=== PATIENT | female | born 2000 | race African-American/Black ===

== ENCOUNTER 2019-03-09 03:40 | Emergency (ER) | payer OTHER, MEDICAID, SELFPAY ==
[2019-03-09 03:52] VITALS: BP 137/90; PULSE 96; RESP 20; TEMP 37.5; O2SAT 100; BMI 25.7
[2019-03-09] MEDS: KETOROLAC 60 MG/2 ML VIAL IM (04:26)
--- NOTE | 2019-03-09 04:27 | ED_ITS ---
HPI - URI/Sore Throat General Chief Complaint: Upper Respiratory Symptoms Stated Complaint: Sore throat Time Seen by Provider: 03/09/19 04:12 Source: patient Mode of arrival: ambulatory Limitations: no limitations History of Present Illness HPI Narrative: The patient checks in with complaints of fever and severe sore throat. She has not used ibuprofen or Tylenol. She is having difficulty swallowing. She has slight hoarseness. She has 2 young children at home, needed they nor have been ill. She does not work. She is a smoker, she has no allergies or asthma. She has no significant cough. She has no GI symptoms. She is not . Related Data Previous Rx's Medication Instructions Recorded amoxicillin 500 mg PO TID 10 Days #30 cap 03/09/19 Review of Systems Review of Systems ROS Unobtainable: All systems reviewed & are unremarkable except as noted in HPI and below Constitutional Denies chills, Reports fever(s), Reports lethargy and Denies weakness Eyes Denies eye discharge ENT Ears, Nose, Mouth, and Throat: Reports change in voice, Reports neck pain and Reports sore throat Cardiovascular Denies chest pain, Denies irregular heart rhythm, Denies lightheadedness, Denies palpitations, Denies dyspnea, Denies dyspnea on exertion and Denies orthopnea Respiratory Denies cough, Denies dyspnea, Denies dyspnea on exertion and Denies wheezing Gastrointestinal Gastrointestinal: Denies abdominal pain, Denies change in bowel habits, Denies diarrhea, Denies nausea and Denies vomiting Musculoskeletal Reports neck pain Neurologic Denies weakness Endocrine Denies palpitations Allergic/Immunologic Denies wheezing [facility] Medical History (Updated 03/09/19 @ 04:30 by Yeyo Tapia MD) No active medical problems (Acute) Surgical History (Updated 03/09/19 @ 04:24 by Yeyo Tapia MD) No pertinent past surgical history (Acute) Social History Smoking Status: Current every day smoker Social History Smoking Status: Current every day smoker Exam Initial Vital Signs Initial Vital Signs: Vital Signs Temperature 99.5 F 03/09/19 03:52 Pulse Rate 96 H 03/09/19 03:52 Respiratory Rate 20 03/09/19 03:52 Blood Pressure 137/90 03/09/19 03:52 Pulse Oximetry 100 03/09/19 03:52 Const General: cooperative, well developed and No acute distress Nutritional Appearance: well nourished Orientation: alert, awake and oriented x3 HENMT Head: normocephalic and atraumatic Ears: external ears normal and TM's normal bilaterally Nose: external nose normal and No nasal discharge Face and sinus: sinuses nontender, face symmetric, no sinus tenderness and No dry mucous membranes Mouth: oral mucosae normal and moist mucous membranes Teeth and gingiva: dentition normal Throat: posterior oropharynx abnormal (Bilateral tonsillar erythema with exudate.) Eyes Conjunctivae: conjunctivae normal Neck Neck: lymphadenopathy and other (No meningeal signs) Resp Effort & Inspection: normal respiratory effort, able to speak in complete sentences, no respiratory distress and no use of accessory muscles Auscultation: clear to auscultation bilaterally, no rales, no rhonchi and no wheezes Cardio Rate: regular rate Rhythm: regular rhythm Heart Sounds: no click, no gallops, no murmurs and no rubs Pulses: normal peripheral pulses Skin General: no rashes or lesions noted, No jaundice and No petechiae Neuro General: alert, oriented x3, gait normal and no focal motor deficits Speech: speech normal Course Course Narrative: The patient has confirmed strep throat. I have started on amoxicillin. She has not been taking analgesics for the throat pain. She is miserable, Toradol IM was given. She is instructed to use ibuprofen 3 tablets every 6 hours. Vital Signs - 8 hr 03/09/19 03:52 Temperature 99.5 F Pulse Rate 96 H Respiratory Rate 20 Blood Pressure 137/90 Pulse Oximetry 100 MDM - URI/Sore Throat Lab Data Point of Care Testing Rapid Strep A Positive Discharge Plan Departure Patient Disposition: Home Clinical Impression: Strep throat Instructions: DI for Strep Throat Activity Restrictions/Additional Instructions: Amoxicillin 3 times daily as prescribed. Ibuprofen take 3 tablets every 6 hours as needed for pain or fever. Be sure you are drinking plenty of fluids and staying well hydrated as we discussed. Return the ER if necessary. Prescriptions: New amoxicillin 500 mg capsule 500 mg PO TID 10 Days Qty: 30 RF: 0
[2019-03-09] MEDS: AMOXICILLIN 250 MG PREPACK 1 BOTTLE MISC (04:28)
== END 2019-03-09 04:42 | disposition home or self-care (01) ==
PROVIDERS: Emergency Provider Emergency Medicine
DX: J02.0 Streptococcal pharyngitis (principal)
CPT/HCPCS: 87880; 96372; 99282; 99283; J1885

== ENCOUNTER 2019-08-09 21:48 | Emergency (ER) | payer OTHER, MEDICAID, SELFPAY ==
[2019-08-09 21:55] VITALS: BP 142/93; PULSE 102; RESP 14; TEMP 36.9; O2SAT 99; BMI 25.7
--- NOTE | 2019-08-09 22:48 | ED.SKABFB ---
HPI - Skin/Abscess/Foreign Bdy General Chief complaint: Skin/Abscess/Foreign Body Stated complaint: RASH ALL OVER Time Seen by Provider: 08/09/19 22:48 Source: patient Mode of arrival: Ambulatory Limitations: no limitations History of Present Illness HPI narrative: Patient is a 19-year-old female who presents with rash on the back of her neck and under her armpits. She says it started this morning. She took a shower and Benadryl this evening and seems to have disappeared while in the emergency department. She at no time had any difficulty breathing she overall feels like the itching is gone and that the rash has completely resolved. complaint: rash Location: generalized Related Data Allergies Allergy/AdvReac Type Severity Reaction Status Date / Time No Known Drug Allergies Allergy Verified 08/09/19 22:02 Review of Systems Review of Systems Narrative: GENERAL: Denies chills,fever HEENT: Denies throat pain RESPIRATORY: Denies dyspnea, cough, wheezing CARDIOVASCULAR: Denies chest pain, palpitations GASTROINTESTINAL: Denies nausea, vomiting MUSCULOSKELETAL: Denies extremity pain, injury SKIN: See HPI NEUROLOGIC: Denies weakness, dizziness, headache, numbness 8 point review of systems is negative except for those stated above and HPI Patient History Medical History No active medical problems (Acute) Surgical History No pertinent past surgical history (Acute) Social History Smoking Status: Current every day smoker Social History Smoking Status: Current every day smoker tobacco type: cigarettes alcohol intake frequency: a few times a month Substance Use Type: marijuana Exam Initial Vital Signs Initial Vital Signs: Vital Signs Temperature 98.4 F 08/09/19 21:55 Pulse Rate 102 H 08/09/19 21:55 Respiratory Rate 14 08/09/19 21:55 Blood Pressure 142/93 H 08/09/19 21:55 Pulse Oximetry 99 08/09/19 21:55 GENERAL: Well-appearing, well-nourished and in no acute distress. CARDIOVASCULAR: peripheral pulses in tact, cap refill <2 sec RESPIRATORY: No respiratory distress, speaks in full sentences without difficulty EXTREMITIES: Normal range of motion, no clubbing or edema. Neurovascularly intact NEUROLOGICAL: Cranial nerves II through XII grossly intact. Normal gait and speech. SKIN: No identifiable hives or rash noted on neck trunk or extremities Course Vital Signs Vital signs: Vital Signs - 8 hr 08/09/19 21:55 08/09/19 22:57 Temperature 98.4 F 98.9 F Pulse Rate 102 H 99 H Respiratory Rate 14 20 Blood Pressure 142/93 H Blood Pressure [Left Arm] 130/80 Pulse Oximetry 99 98 MDM - Skin/Abscess/Foreign Bdy MDM Narrative Medical decision making narrative: Patient now has no identifiable rash. She overall is feeling better. At this time no indication for any further treatment. Discharge Plan Departure Patient Disposition: Home Clinical Impression: Allergic reaction Qualifiers: Encounter type: initial encounter Qualified Code(s): T78.40XA - Allergy, unspecified, initial encounter Discharge Date/Time: 08/09/19 23:09 Instructions: DI for Hives Activity Restrictions/Additional Instructions: *You have been diagnosed with rash *What to do: Possible allergic reaction. Of *Continue to take medications as directed Benadryl 25 mg every 6 hours only if needed for itching. This can and does cause drowsiness *Follow up with your primary care provider in 2-3 days *Return to ER if you should have increased or worsening rash, difficulty breathing or any new, worsening or concerning symptoms
[2019-08-09 22:57] VITALS: BP 130/80; PULSE 99; RESP 20; TEMP 37.2; O2SAT 98
== END 2019-08-09 23:09 | disposition home or self-care (01) ==
PROVIDERS: Emergency Provider Emergency Medicine
DX: T78.40XA Allergy, unspecified, initial encounter (principal); R21 Rash and other nonspecific skin eruption
CPT/HCPCS: 99282

== ENCOUNTER 2022-08-27 08:47 | Emergency (ER) | payer OTHER, MEDICAID, SELFPAY ==
[2022-08-27 09:28] VITALS: BP 134/85; PULSE 98; RESP 15; TEMP 37.2; O2SAT 96; BMI 34.3
[2022-08-27 10:46] LABS: COVID19 -Nasal RAPID Negative (Negative)
--- NOTE | 2022-08-27 11:16 | ED.URI ---
HPI - URI/Sore Throat General Chief Complaint: Upper Respiratory Symptoms Stated Complaint: sore throat,cough Time Seen by Provider: 08/27/22 09:51 Source: patient Mode of arrival: Ambulatory Limitations: no limitations History of Present Illness HPI Narrative: The patient has been ill for 5 days. She complains of headache, sore throat, pain with swallowing, occasional cough. She is uncertain of fever. She is no nasal congestion. She is no history of asthma or allergies. She is no chest pain, no difficulty breathing. She is no GI symptoms. She is no rashes. She is a cigarette smoker. Related Data Previous Rx's Medication Instructions Recorded amoxicillin 500 mg tablet 500 mg PO TID 10 days #30 tabs 08/27/22 Allergies Allergy/AdvReac Type Severity Reaction Status Date / Time No Known Drug Allergies Allergy Verified 08/27/22 09:32 Review of Systems Review of Systems ROS Unobtainable: All systems reviewed & are unremarkable except as noted in HPI and below Patient History Medical History (Updated 08/27/22 @ 11:22 by Yeyo Tapia MD) No active medical problems No active medical problems Surgical History No pertinent past surgical history Social History Smoking Status: Current every day smoker Smoking Status: Current every day smoker tobacco type: cigarettes alcohol intake frequency: a few times a month Substance Use Type: marijuana Exam Initial Vital Signs Initial Vital Signs: Vital Signs Temperature 99.0 F 08/27/22 09:28 Pulse Rate 98 H 08/27/22 09:28 Respiratory Rate 15 08/27/22 09:28 Blood Pressure 134/85 08/27/22 09:28 Pulse Oximetry 96 08/27/22 09:28 Oxygen Delivery Method 08/27/22 09:28 Const General: cooperative, ill appearing and other (Nontoxic.) Nutritional Appearance: average body habitus [facility] Head: normal to inspection, normocephalic and atraumatic Ears: TM's normal bilaterally Nose: external nose normal and nares normal Face and sinus: sinuses nontender Mouth: other (Oropharyngeal erythema, slight exudate. No tonsillar hypertrophy.) Eyes General: Yes appearance normal, both eyes and all related structures Neck Neck: normal visual inspection, full ROM and lymphadenopathy Resp Effort & Inspection: normal respiratory effort Auscultation: clear to auscultation bilaterally Cardio Rate: regular rate Rhythm: regular rhythm Heart Sounds: S1 normal, S2 normal and no murmurs Back/Spine/Pelvis Back: normal to inspection Skin General: no rashes or lesions noted Neuro General: patient alert, patient awake, patient oriented x3 and no focal motor deficits Course Orders Ordered: ED Orders 08/27/22 09:27 COVID19 -Nasal RAPID/Pre-Proc Stat Vital Signs Vital signs: Vital Signs - 8 hr 08/27/22 09:28 Temperature 99.0 F Pulse Rate 98 H Respiratory Rate 15 Blood Pressure 134/85 Pulse Oximetry 96 Oxygen Delivery Method Room Air MDM - URI/Sore Throat Lab Data Labs: Lab Results 08/27/22 Range/Units 09:27 SARS-CoV-2 (PCR) Negative (Negative) Point of Care Testing Rapid Strep A Positive Discharge Plan Departure Patient Disposition: Home Clinical Impression: Strep throat Instructions: DI for Strep Throat Activity Restrictions/Additional Instructions: Tylenol or Advil as needed for pain or fever. Amoxicillin 3 times daily for 10 days. Rest, be sure you are drinking plenty of fluids at all time. You should improve within next 4-5 days. Return here if needed. Prescriptions: New amoxicillin 500 mg tablet 500 mg PO TID 10 Days Qty: 30 0RF
[2022-08-27 11:35] VITALS: BP 115/80; PULSE 88; RESP 22; TEMP 37.2; O2SAT 99
== END 2022-08-27 11:36 | disposition home or self-care (01) ==
PROVIDERS: Emergency Provider Emergency Medicine
DX: J02.0 Streptococcal pharyngitis (principal); Z20.822 Contact with and (suspected) exposure to COVID-19
CPT/HCPCS: 87635; 87880; 99281; 99282; C9803